=== PATIENT | female | born 1945 | race African-American/Black ===

== ENCOUNTER 2016-07-28 14:09 | Emergency (ER) | payer MEDICARE, MEDICAID ==
[~2016-07-28] VITALS: Ht 170.2 cm; Wt 71.2 kg
[2016-07-28] MEDS ORDERED: PredniSONE 20mg tab ORAL ONE (14:15)
--- NOTE | 2016-07-28 14:25 | Emergency Room Report ---
History of Present Illness General Chief Complaint: Pain Source: Patient Present Illness HPI Patient is a 71-year-old female who presented after having increased body aches and lower extremity weakness. Patient had prior history of reported MS patient was noted to have increased weakness to her lower extremities. Patient states that she had intermittent relapses. Patient states that she's followed by a physician at [facility]. The patient denied any fever. The patient denied any severe headache. She denied recent trauma Allergies: Coded Allergies: ASPIRIN (Unverified Allergy, Unknown, 05/16/14) Patient History Reviewed Nursing Documentation: PMH: Agreed, PSxH: Agreed Nursing Documentation-PMH Hx Hypertension: Yes Hx Neurological Problems: Yes - arthritis Review of Systems All Other Systems: negative except mentioned in HPI Physical Exam Vital Signs Date Time Temp Pulse Resp B/P Pulse Ox O2 Delivery O2 Flow Rate FiO2 07/28/16 14:11 99.3 88 16 124/70 98 Room Air Sp02 EP Interpretation: reviewed, normal General Appearance: normal inspection, well appearing, no apparent distress, alert, GCS 15, non-toxic Head: atraumatic ENT: normal ENT inspection, hearing grossly normal, normal voice Neck: normal inspection, full range of motion, supple, no bony tend Respiratory: normal inspection, lungs clear, normal breath sounds, no respiratory distress, no retraction, no wheezing Cardiovascular #1: regular rate, rhythm, no edema Gastrointestinal: normal inspection, normal bowel sounds, non tender, soft, no guarding, no hernia Genitourinary: no CVA tenderness Musculoskeletal: normal inspection, back normal, normal range of motion Neurologic: normal inspection, alert, oriented x3, responsive, merchandising intern III-XII nml as tested, speech normal, other - slight increased reflexes to lower extremities Psychiatric: normal inspection, judgement/insight normal, mood/affect normal Skin: normal inspection, normal color, no rash Medical Decision Making Diagnostic Impression: Primary Impression: Multiple sclerosis exacerbation Additional Impression: Lower extremity weakness ER Course Patient presented for lower extremity weakness. Differential diagnosis included was not limited to urinary tract infection, MS exacerbation, bronchitis among others.Because of complexity of patient's case laboratory testing and imaging studies were ordered.Laboratory studies showed a lower blood count otherwise unremarkable laboratory testing.A urinalysis showed evidence of slight infection. Patient noted have a low-grade fever. Patient was given steroids. The patient was noted to have increased weakness and unable to ambulate. Patient was discussed with Dr. Arce who agreed except patient in transfer laboratory testing showed no evidence of a electrolyte abnormality. The patient be transferred for continuity of care. Patient was empirically given Rocephin. Laboratory Tests Test 07/28/16 14:55 White Blood Count 5.8 K/UL (4.8-10.8) Red Blood Count 4.20 M/UL (4.20-5.40) Hemoglobin 12.1 G/DL (12.0-16.0) Hematocrit 36.4 % (37.0-47.0) L Mean Corpuscular Volume 87 FL (80-99) Mean Corpuscular Hemoglobin 28.9 PG (27.0-31.0) Mean Corpuscular Hemoglobin Concent 33.4 G/DL (32.0-36.0) Red Cell Distribution Width 12.7 % (11.6-14.8) Platelet Count 159 K/UL (150-450) Mean Platelet Volume 8.9 FL (6.5-10.1) Neutrophils (%) (Auto) 70.8 % (45.0-75.0) Lymphocytes (%) (Auto) 17.5 % (20.0-45.0) L Monocytes (%) (Auto) 10.3 % (1.0-10.0) H Eosinophils (%) (Auto) 1.0 % (0.0-3.0) Basophils (%) (Auto) 0.6 % (0.0-2.0) Prothrombin Time 11.6 SEC (9.30-11.50) H Prothrombin Time INR 1.1 (0.9-1.1) PTT 26 SEC (23-33) Sodium Level 142 mEQ/L (135-145) Potassium Level 3.7 mEQ/L (3.4-4.9) Chloride Level 98 mEQ/L (98-107) Carbon Dioxide Level 32 mEQ/L (20-30) H Anion Gap 12 (5-15) Blood Urea Nitrogen 16 mg/dL (7-23) Creatinine 0.7 mg/dL (0.5-0.9) Estimate Glomerular Filtration Rate > 60 mL/min (>60) Glucose Level 136 mg/dL (74-106) H Calcium Level 9.2 mg/dL (8.6-10.2) Total Bilirubin 0.4 mg/dL (0.0-1.2) Aspartate Amino Transferase (AST) 43 U/L (5-40) H Alanine Aminotransferase (ALT) 26 U/L (3-33) Alkaline Phosphatase 71 U/L (35-104) Troponin I < 0.30 ng/mL (<=0.30) Total Protein 6.7 g/dL (6.6-8.7) Albumin 4.1 g/dL (3.5-5.2) Globulin 2.6 g/dL Albumin/Globulin Ratio 1.5 (1.0-2.7) Thyroid Stimulating Hormone (TSH) 0.518 uIU/mL (0.300-4.500) Serum Alcohol < 10 mg/dL Last Vital Signs Date Time Temp Pulse Resp B/P Pulse Ox O2 Delivery O2 Flow Rate FiO2 07/28/16 14:11 99.3 88 16 124/70 98 Room Air Status: unchanged Disposition: XFER SHT-TRM HOSP Condition: Serious Everton Carr Jul 28, 2016 14:24
[2016-07-28 15:06] LABS: BASOPHILS % (AUTO) 0.6 % (0.0-2.0); LYMPHOCYTES % (AUTO) 17.5 % (20.0-45.0); MEAN CORPUSCULAR HEMOGLOBIN 28.9 PG (27.0-31.0); MEAN CORPUSCULAR HGB CONC 33.4 G/DL (32.0-36.0); MEAN CORPUSCULAR VOLUME 87 FL (80-99); MEAN PLATELET VOLUME 8.9 FL (6.5-10.1); MONOCYTES % (AUTO) 10.3 % (1.0-10.0); NEUTROPHILS % (AUTO) 70.8 % (45.0-75.0); PLATELET COUNT 159 K/UL (150-450); RED CELL DISTRIBUTION WIDTH 12.7 % (11.6-14.8); WHITE BLOOD COUNT 5.8 K/UL (4.8-10.8)
[2016-07-28 15:13] VITALS: BP 124/70
[2016-07-28 15:16] LABS: INR 1.1 (0.9-1.1); PROTHROMBIN TIME 11.6 SEC (9.30-11.50)
[2016-07-28 15:27] LABS: TROPONIN I < 0.30 ng/mL (<=0.30)
[2016-07-28 15:30] LABS: ALANINE AMINOTRANSFERASE 26 U/L (3-33); ALBUMIN/GLOBULIN RATIO 1.5 (1.0-2.7); ALCOHOL < 10 mg/dL; ANION GAP 12 (5-15); ASPARTATE AMINO TRANSFERASE 43 U/L (5-40); CALCIUM 9.2 mg/dL (8.6-10.2); CARBON DIOXIDE 32 mEQ/L (20-30); CHLORIDE 98 mEQ/L (98-107); CREATININE 0.7 mg/dL (0.5-0.9); GLOMERULAR FILTRATION RATE > 60 mL/min (>60); HEMOLYSIS 15; POTASSIUM 3.7 mEQ/L (3.4-4.9); SODIUM 142 mEQ/L (135-145); TOTAL PROTEIN 6.7 g/dL (6.6-8.7)
[2016-07-28 15:40] LABS: THYROID STIMULATING HORMONE 0.518 uIU/mL (0.300-4.500)
[2016-07-28] MEDS ORDERED: DAILY VITE1 EACH ORAL (17:26)
[2016-07-28] MEDS ORDERED: OYSTER SHELL C500 MG PO (17:27)
[2016-07-28] MEDS ORDERED: CLOTRIMAZOLE15 GM TOPIC (17:27)
[2016-07-28] MEDS ORDERED: LATANOPROST2.5 ML BOTH EYES (17:28)
[2016-07-28] MEDS ORDERED: BENZTROPINE MESY2 MG ORAL (17:28)
[2016-07-28] MEDS ORDERED: AMLODIPINE BESYL5 MG ORAL (17:29)
[2016-07-28] MEDS ORDERED: DONEPEZIL HCL10 MG ORAL (17:29)
[2016-07-28] MEDS ORDERED: TECFIDERA240 MG PO (17:30)
[2016-07-28] MEDS ORDERED: LATUDA20 MG PO (17:31)
[2016-07-28] MEDS ORDERED: TRAZODONE HCL150 MG ORAL (17:31)
[2016-07-28] MEDS ORDERED: ZYPREXA5 MG ORAL (17:31)
[2016-07-28] MEDS ORDERED: CITALOPRAM HBR20 M1 ORAL (17:32)
[2016-07-28] MEDS ORDERED: cefTRIAXone 1 GM in NS 55 ML IVPB ONE (18:30)
[2016-07-28 18:51] LABS: APPEARANCE,URINE SLIGHTLY CLOUDY; KETONES,URINE 2+ (NEGATIVE); NITRITE,URINE NEGATIVE (NEGATIVE); PROTEIN,URINE 1+ (NEGATIVE)
[2016-07-28 18:52] LABS: LEUKOCYTE ESTERASE ,URINE NEGATIVE (NEGATIVE); UROBILINOGEN,URINE 4 MG/DL (0.0-1.0)
[2016-07-28 19:00] LABS: BACTERIA,URINE MODERATE /HPF; RBC,URINE 0-2 /HPF (0 - 2); SQUAMOUS EPITHELIAL CELL,UR FEW /LPF (NONE/OCC)
[2016-07-28 19:43] VITALS: BP 137/71
== END 2016-07-28 19:46 | disposition short-term general hospital (02) ==
LOC: EDBD 14:09 → EMR 14:45
DX: G35 Multiple sclerosis (principal); R53.1 Weakness; I10 Essential (primary) hypertension; M19.90 Unspecified osteoarthritis, unspecified site; Z88.6 Allergy status to analgesic agent
CPT/HCPCS: 36415; 80053; 81001; 84443; 84484; 85025; 85610; 85730; 87086; 96360; 99285; G0480; J0696; 80329

== ENCOUNTER 2019-02-28 17:34 | Inpatient (IN) | payer MEDICARE, MEDICAID ==
[~2019-02-28] VITALS: Ht 170.2 cm; Wt 88.5 kg
[~2019-02-28 17:34] MED LIST: AMLODIPINE BESYL5 MG ORAL; BENZTROPINE MESY2 MG ORAL; CITALOPRAM HBR20 M1 ORAL; CLOTRIMAZOLE15 GM TOPIC; DAILY VITE1 EACH ORAL; DONEPEZIL HCL10 MG ORAL; LATANOPROST2.5 ML BOTH EYES; LATUDA20 MG PO; OYSTER SHELL C500 MG PO; TECFIDERA240 MG PO; TRAZODONE HCL150 MG ORAL; ZYPREXA5 MG ORAL
[2019-02-28 17:38] VITALS: BP 142/73
--- NOTE | 2019-02-28 17:38 | NUR ---
ED Nurse Note: pt brought in to ER by ambulance from home due to general weakness and general pain 10/10 due to MS. per pt, she ran out of her MS medication and did not take and flaring started. pt aao x4 and per pt she is ambulatory with a cane but not at this moment. skin clean and intact. calm and cooperative. no acute distress noted. pt is in gown and on chief of production.
--- NOTE | 2019-02-28 17:45 | NUR ---
ED Nurse Note: ERMD at bedside.
--- NOTE | 2019-02-28 17:55 | Emergency Room Report ---
History of Present Illness General Chief Complaint: Pain Source: EMS Present Illness HPI Disclaimer: Please note that this report is being documented using DRAGON technology. This can lead to erroneous entry secondary to incorrect interpretation by the dictating instrument. HPI: 73-year-old female with a history of multiple sclerosis presenting for evaluation of lower extremity weakness. Patient states she has been feeling weak for 1 to 2 days particularly in the left lower extremity. This morning she ran out of her MS medication, dimethyl fumarate and missed this morning and afternoon dose. She notes worsening weakness in the left lower extremity but denies changes in pain, sensation or proprioception. She denies any injury or fall. She normally ambulate with the use of a cane but was unable to get around her home this morning. She lives independently otherwise. Denies any fall or head injury recently. Denies any headache, visual changes, weakness or pain in the upper extremities, chest pain, shortness of breath, vomiting, diarrhea. Denies any recent febrile illness or recent change in her health. She follows with neurology at [facility]. PMH: Multiple sclerosis, anxiety, hypertension, depression PSH: Gastric tumor resection Allergies: Hypersensitivity to aspirin Social Hx: Denies tobacco, drug or alcohol abuse Allergies: Coded Allergies: ASPIRIN (Unverified Allergy, Unknown, 05/16/14) Nursing Documentation-PMH Past Medical History: No History, Except For Hx Hypertension: Yes - MS Hx Neurological Problems: Yes - arthritis Review of Systems All Other Systems: negative except mentioned in HPI Physical Exam Vital Signs Date Time Temp Pulse Resp B/P (MAP) Pulse Ox O2 Delivery O2 Flow Rate FiO2 02/28/19 17:29 97.9 89 18 159/84 (109) 98 Room Air General: Awake and alert, no acute distress HEENT: NC/AT. EOMI. PERRLA. Visual jaffe are full. No nystagmus. Facial expressions are symmetrical. No facial droop. Cardiovascular: RRR. S1 and S2 normal. No murmur appreciated Resp: Normal work of breathing. No cough, wheezing or crackles appreciated Abdomen: Abdomen is soft, nondistended. Nontender Skin: Intact. No abrasions, laceration or rash over the exposed skin MSK: Normal tone and bulk. Moving all extremities. No obvious deformity. There is no drift in the upper extremities bilaterally. There is drift in the right lower extremity and the left lower extremity falls to the floor with some effort against gravity. Neuro: Awake and alert. Mentating appropriately. Facial expression symmetrical. No dysarthria, no ataxia on [id number]. Sensation to light touch is intact over the upper and lower extremities. The patient has intact speech with good repetition, comprehension. Fund of knowledge is full. No aphasia, no neglect. NIH: 3 Medical Decision Making Diagnostic Impression: Primary Impression: Weakness ER Course This is 73-year-old female with a history of multiple sclerosis presenting for evaluation of lower extremity weakness beginning sometime yesterday and worsening throughout the day today. Differential includes was not limited to MS exacerbation, CVA, letter light abnormality, dehydration, intercranial mass. Will stop metabolic and infectious work-up with labs, EKG and also obtain a noncontrast CT scan of the head and an MRI with and without contrast of the brain. Laboratory Tests Test 02/28/19 17:45 02/28/19 21:00 White Blood Count 4.5 K/UL (4.8-10.8) L Red Blood Count 3.86 M/UL (4.20-5.40) L Hemoglobin 11.6 G/DL (12.0-16.0) L Hematocrit 33.2 % (37.0-47.0) L Mean Corpuscular Volume 86 FL (80-99) Mean Corpuscular Hemoglobin 30.2 PG (27.0-31.0) Mean Corpuscular Hemoglobin Concent 35.0 G/DL (32.0-36.0) Red Cell Distribution Width 12.5 % (11.6-14.8) Platelet Count 127 K/UL (150-450) L Mean Platelet Volume 7.7 FL (6.5-10.1) Neutrophils (%) (Auto) 52.1 % (45.0-75.0) Lymphocytes (%) (Auto) 31.0 % (20.0-45.0) Monocytes (%) (Auto) 13.8 % (1.0-10.0) H Eosinophils (%) (Auto) 1.2 % (0.0-3.0) Basophils (%) (Auto) 2.0 % (0.0-2.0) Erythrocyte Sedimentation Rate 17 MM/HR (0-30) Sodium Level 144 MMOL/L (136-145) Potassium Level 4.0 MMOL/L (3.5-5.1) Chloride Level 111 MMOL/L (98-107) H Carbon Dioxide Level 26 MMOL/L (21-32) Anion Gap 7 mmol/L (5-15) Blood Urea Nitrogen 12 mg/dL (7-18) Creatinine 0.6 MG/DL (0.55-1.30) Estimate Glomerular Filtration Rate mL/min (>60) Glucose Level 97 MG/DL (74-106) Calcium Level 9.2 MG/DL (8.5-10.1) Phosphorus Level 3.0 MG/DL (2.5-4.9) Magnesium Level 1.7 MG/DL (1.8-2.4) L Total Bilirubin 0.4 MG/DL (0.2-1.0) Aspartate Amino Transferase (AST) 23 U/L (15-37) Alanine Aminotransferase (ALT) 18 U/L (12-78) Alkaline Phosphatase 85 U/L (46-116) Total Creatine Kinase 221 U/L (26-308) Creatine Kinase MB 2.4 NG/ML (0.0-3.6) Creatine Kinase MB Relative Index 1.0 Troponin I 0.000 ng/mL (0.000-0.056) C-Reactive Protein, Quantitative < 0.4 mg/dL (0.00-0.90) Total Protein 7.5 G/DL (6.4-8.2) Albumin 3.8 G/DL (3.4-5.0) Globulin 3.7 g/dL Albumin/Globulin Ratio 1.0 (1.0-2.7) Urine Color Pale yellow Urine Appearance Clear Urine pH 6 (4.5-8.0) Urine Specific [place] 1.010 (1.005-1.035) Urine Protein Negative (NEGATIVE) Urine Glucose (UA) Negative (NEGATIVE) Urine Ketones Negative (NEGATIVE) Urine Blood 1+ (NEGATIVE) H Urine Nitrite Negative (NEGATIVE) Urine Bilirubin Negative (NEGATIVE) Urine Urobilinogen Normal MG/DL (0.0-1.0) Urine Leukocyte Esterase Negative (NEGATIVE) Urine RBC 0-2 /HPF (0 - 2) Urine WBC 0-2 /HPF (0 - 2) Urine Squamous Epithelial Cells Occasional /LPF Urine Bacteria Few /HPF (NONE) EKG Diagnostic Results EKG Time: 18:04 Rate: normal Rhythm: NSR ST Segments: no acute changes Other Impression Sinus rhythm, slight left axis deviation, inverted T wave III and peaked T waves in V2. No ST segment changes. Rhythm Strip Diag. Results Rhythm Strip Time: 18:04 EP Interpretation: yes Rate: 70s Rhythm: NSR, no PVC's, no ectopy CT/MRI/US Diagnostic Results CT/MRI/US Diagnostic Results : Impression Preliminary Findings Only See Final Report For Complete Findings MRI HEAD W/WO Contrast: FINDINGS: No abnormal intra- or extra-axial collections. There is prominence of the perivascular spaces. No abnormal enhancement. No evidence for restricted diffusion. There are involutional changes with prominence of the sulci, basal cisterns and ventricles. Scattered white matter hyperintensities are present, likely from small vessel disease. No evidence for blood products on gradient imaging The song-white differentiation is preserved. No evidence of mass effect , midline shift, or edema. IMPRESSION: 1. No acute intracranial process. 2. White matter changes suspicious for small vessel ischemic change. Prominence of perivascular spaces Radiologist: Fabio Carney MD Study ready at 21:05 and initial results transmitted at 21:38 Reevaluation Time: 22:00 Last Vital Signs Date Time Temp Pulse Resp B/P (MAP) Pulse Ox O2 Delivery O2 Flow Rate FiO2 02/28/19 17:42 81 18 Room Air 02/28/19 17:38 97.9 142/73 97 Status: unchanged Reevaluation Impression CT scan of the head showed no acute intracranial mass or bleed. MRI showed nonspecific white matter changes consistent with microvascular disease but no acute intracranial findings to suggest acute MS flare. She was given high-dose steroids for suspected MS exacerbation. Lab work is returned largely within normal limits. She will be admitted for lower extremity weakness and inability to ambulate. She is stable and appropriate for transfer to the floor. Disposition: ADMITTED INPATIENT Condition: Serious Scott Hunt MD Feb 28, 2019 17:55
[2019-02-28] MEDS ORDERED: Gadavist 7.5mMol/7.5ml vial IV PRN (18:00)
[2019-02-28 18:08] LABS: EOSINOPHILS % (AUTO) 1.2 % (0.0-3.0); HEMATOCRIT 33.2 % (37.0-47.0); HEMOGLOBIN 11.6 G/DL (12.0-16.0); MEAN CORPUSCULAR VOLUME 86 FL (80-99); MONOCYTES % (AUTO) 13.8 % (1.0-10.0); NEUTROPHILS % (AUTO) 52.1 % (45.0-75.0); PLATELET COUNT 127 K/UL (150-450); RED BLOOD COUNT 3.86 M/UL (4.20-5.40); RED CELL DISTRIBUTION WIDTH 12.5 % (11.6-14.8); WHITE BLOOD COUNT 4.5 K/UL (4.8-10.8)
[2019-02-28 18:19] LABS: ANION GAP 7 mmol/L (5-15); BLOOD UREA NITROGEN 12 mg/dL (7-18); CALCIUM 9.2 MG/DL (8.5-10.1); CARBON DIOXIDE 26 MMOL/L (21-32); CHLORIDE 111 MMOL/L (98-107); CREATININE 0.6 MG/DL (0.55-1.30); SODIUM 144 MMOL/L (136-145)
[2019-02-28 18:33] LABS: ALANINE AMINOTRANSFERASE 18 U/L (12-78); ALBUMIN 3.8 G/DL (3.4-5.0); ALKALINE PHOSPHATASE 85 U/L (46-116); ASPARTATE AMINO TRANSFERASE 23 U/L (15-37); BILIRUBIN,TOTAL 0.4 MG/DL (0.2-1.0); CKMB 2.4 NG/ML (0.0-3.6); CREATINE KINASE 221 U/L (26-308)
--- NOTE | 2019-02-28 18:59 | NUR ---
ED Nurse Note: pt went down for imaging in stable condition.
--- NOTE | 2019-02-28 19:04 | NUR ---
HAND-OFF: Report given to Serjio Mckeno RN. pt went down for imaging. no orders to carry at this moment.
--- NOTE | 2019-02-28 19:08 | NUR ---
ED Nurse Note: received report from rosangela cerda rn. patient down in ct.
--- NOTE | 2019-02-28 19:30 | NUR ---
ED Nurse Note: pt back from ct. ao4. nad. vss. assisted pt on bedpan.
--- NOTE | 2019-02-28 19:35 | Diagnostic Imaging Report ---
Indications: Head pain and weakness Technique: Spiral acquisitions obtained through the brain. Angled axial and coronal 5 x 5 mm slices were reconstructed. Total dose length product 1417.5 mGycm. CTDI vol(s) 70.38 mGy. Dose reduction achieved using automated exposure control Comparison: None. Findings: There is periventricular deep white matter low-attenuation, consistent with chronic microvascular ischemic change. Normal size ventricles and extra axial CSF spaces. Otherwise normal kevin-white differentiation. Visualized orbits and sinuses are unremarkable. The mastoids are clear. The calvarium is intact. Impression: Age-related changes, as described Negative for acute intracranial bleed or mass effect This agrees with the preliminary interpretation provided overnight by [facility]. The CT scanner at [facility] is accredited by the [employer] and the scans are performed using protocols designed to limit radiation exposure to as low as reasonably achievable to attain images of sufficient resolution adequate for diagnostic evaluation.
[2019-02-28] MEDS ORDERED: methylPREDNISolone Sod Succ 1,000 MG in NS 275 ML IVPB ONE (19:45)
--- NOTE | 2019-02-28 20:02 | NUR ---
ED Nurse Note: pt down to mri
--- NOTE | 2019-02-28 21:00 | NUR ---
ED Nurse Note: pt back from mri. assisted pt to bedpan. urine collected; sent down to lab.
[2019-02-28 21:19] LABS: APPEARANCE,URINE CLEAR; BILIRUBIN, URINE NEGATIVE (NEGATIVE); COLOR,URINE PALE YELLOW; GLUCOSE, URINE (UA) NEGATIVE (NEGATIVE); KETONES,URINE NEGATIVE (NEGATIVE); LEUKOCYTE ESTERASE ,URINE NEGATIVE (NEGATIVE); NITRITE,URINE NEGATIVE (NEGATIVE); PH,URINE 6 (4.5-8.0); PROTEIN,URINE NEGATIVE (NEGATIVE); UROBILINOGEN,URINE NORMAL MG/DL (0.0-1.0)
--- NOTE | 2019-02-28 21:39 | Diagnostic Imaging Report ---
MRI HEAD W/WO Contrast: FINDINGS: No abnormal intra- or extra-axial collections. There is prominence of the perivascular spaces. No abnormal enhancement. No evidence for restricted diffusion. There are involutional changes with prominence of the sulci, basal cisterns and ventricles. Scattered white matter hyperintensities are present, likely from small vessel disease. No evidence for blood products on gradient imaging The song-white differentiation is preserved. No evidence of mass effect, midline shift, or edema. IMPRESSION: 1. No acute intracranial process. 2. White matter changes suspicious for small vessel ischemic change. Prominence of perivascular spaces
--- NOTE | 2019-02-28 22:39 | NUR ---
ED Nurse Note: report given basilia puga.
--- NOTE | 2019-02-28 22:40 | NUR ---
TRANSFER TO FLOOR: Patient transferred to [place] [id number] as ordered, per md melissa. Report given to basilia puga. belongings list completed with receiving rn.
[2019-03-01] VITALS (7 sets, daily range): BP systolic 132–155; BP diastolic 64–84
--- NOTE | 2019-03-01 00:23 | NUR ---
NURSE NOTES: Received report from Serjio Mckeon RN @ 6549. Pt arrived to unit @6280. Pt transferred into bed in room 410-2. Vitals obtained BP 153/80, WI 64, RR 18, O2 96, Temp. 98.4. Assessment done. AAO x 4, on room air. Pt c/o weakness of low extremities and pain 2/10 on the legs. Skin is intact. IV site intact and patent. No respiratory distress noted. Meds recon done. Called Dr. Agosto to get an admission order @2494. Waiting for call back. Pt has unsteady gait and cane at bedside. 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 Bed locked, lowest position, alarm on, side rails up x 2, call light within reach. Will continue to monitor.
--- NOTE | 2019-03-01 00:45 | NUR ---
NURSE NOTES: [employer], valerio $20, Rehabilitation Coordinator's license, and insurance card are sent to hospital's safe with [employer]. Pt signed on the deposit slip and receipt given. [place] copy is in the pt's chart.
--- NOTE | 2019-03-01 01:50 | NUR ---
NURSE NOTES: Received order from Dr. Agosto and order carried out.
[2019-03-01] MEDS ORDERED: TECFIDERA240 MG PO (02:05)
--- NOTE | 2019-03-01 07:47 | NUR ---
NURSE NOTES: Pharmacy doesn't have Tecfidera 240mg and pt needs to bring it from home or own pharmacy. RN informed pt and pt understood. Pt will call her own pharmacy to delivery it.
--- NOTE | 2019-03-01 07:50 | NUR ---
NURSE NOTES: Report received from AILYN Jarrett. Pt is lying comfortably in semi-fowlers with no signs of distress. A+Ox4, denies pain/SOB. Respirations are even and unlabored on room air. IV site is intact and saline locked. Bed is at lowest position, brakes engaged, siderails x2, bed alarm on, and call light within reach. Pt is in stable condition at this time;will continue to monitor. Spoke with patient about MS meds. Patient is going to call her pharmacy around 0930.
--- NOTE | 2019-03-01 07:53 | NUR ---
HAND-OFF: Report given to AILYN Humphreys.
[2019-03-01] MEDS: Heparin 5000 units/ml inj SUBQ SCH ×2 (09:00→19:57)
[2019-03-01] MEDS: Solu-MEDROL 40mg Inj IVP SCH (09:19)
[2019-03-01] MEDS: Citalopram Hydrobromide 10mg Tab ORAL SCH (09:19)
[2019-03-01] MEDS: OLANZapine 2.5mg tab ORAL SCH ×2 (09:20→18:16)
--- NOTE | 2019-03-01 10:10 | NUR ---
PT EVALUATION NOTE Patient seen for initial evaluation, see complete evaluation for details. Patient presents with BLE weakness and impaired functional mobility. Patient requires SBA for bed mobility. Patient declined OOB activities due to weakness BLEs, states she will not attempt transfers until after she receives her MS medication. Patient will benefit from skilled inpatient PT intervention to address strength, balance and safety to improve level of functional mobility and return to prior level of function. Patient lives alone and has 3 steps to access her apartment. Recommend discharge home with PT follow up vs. SNF for short term rehab depending on patient's progress once medically cleared by MD. Patient may benefit from use of FWW for ambulation. Addendum: 03/01/19 at 1258 by KRYSTINA JONES PT Amended: Links added.
--- NOTE | 2019-03-01 10:16 | NUR ---
*-* INSURANCE *-* ALL AVAILABLE CLINICALS HAVE BEEN FAXED TO: [facility] COREASM: ELIZABETH Patel P:[phone] F: [phone]
--- NOTE | 2019-03-01 10:22 | NUR ---
NURSE NOTES: Pt takes Tecfidera @ home for her MS. She ran out of the medication today and we do not carry it in this hospital. Her prescription is timed out and she needs a new one, but cannot get a hold of her primary doctor. Left a message with Dr. Agosto to see if he can order a prescription for her. Patient says her pharmacy will deliver as long as she has a new prescription. Awaiting Dr. Agosto's response.
--- NOTE | 2019-03-01 10:37 | NUR ---
NURSE NOTES: Dr. Agosto said he will write the prescription for her MS medication when he gets here today.
--- NOTE | 2019-03-01 11:44 | Cardiology Report ---
APPROVED REPORT EKG Measurement Heart [id number] IA [id number] Normal sinus rhythm Possible Left atrial enlargement Incomplete right bundle branch block Left ventricular hypertrophy Abnormal ECG
--- NOTE | 2019-03-01 16:00 | NUR ---
NURSE NOTES: Sent fax of patient's prescription to her pharmacy. They said they will call the nurses station tomorrow to transfer to her room to speak with her about delivery.
--- NOTE | 2019-03-01 17:15 | NUR ---
CASE MANAGEMENT:REVIEW 73 YR OLD FEMALE BIBA FROM HOME CC: PAIN AND WEAKNESS. UNABLE TO AMBULATE D/T PAIN SI: WEAKNESS 97.9 89 18 159/84 98% ON RA MAG-1.7 IS: SOLUMEDROL IV MAG Q1HRS X2 MRI BRAIN CT HEAD : TO MED/SURG 4 EAST PLAN: NEURO CHECKS Q4HRS
--- NOTE | 2019-03-01 19:10 | NUR ---
NURSE NOTES: Received a report from AILYN Dorsey. Pt is in stable condition. AAOX4. Able to make needs known. IV site is patent and intact. Bed in lowest position. Bed alarm is on. Call light within reach. Will continue to monitor.
--- NOTE | 2019-03-01 19:11 | NUR ---
HAND-OFF: Report given to AILYN Hernadez. Pt is in stable condition; plan of care endorsed.
--- NOTE | 2019-03-01 21:45 | History and Physical Report ---
DATE OF ADMISSION: 02/28/2019 REASON FOR ADMISSION: Significant weakness, multiple sclerosis. HISTORY OF PRESENT ILLNESS: The patient is a 81-year-old female who apparently ran out of her medications . The patient notes that she has been feeling weak over the past 1 to 2 days with lower extremity edema. The patient was given Solu-Medrol in the emergency room and missed her morning and afternoon doses of medication and the patient denies any injury or fall. The patient notes that she does need a prescription written so that she can fill it before discharge. She currently lives independently otherwise. Denies any falls or head injury at this time. Denies any headache or visual changes. The patient's care discussed and reviewed. The patient is followed with Neurology at [facility]. She denies any history of fevers or chills. PAST MEDICAL HISTORY: Notable for multiple sclerosis, anxiety, hypertension, depression, gastric tumor resection. MEDICATIONS: Reviewed and reconciled. ALLERGIES: Reviewed and reconciled. REVIEW OF SYSTEMS: All 10-points reviewed and otherwise negative with the exception of the above. PHYSICAL EXAMINATION: GENERAL: The patient is a well-developed female, slightly confused. VITAL SIGNS: Blood pressure 139/64, pulse 63, respiratory rate 18, saturation 98%, temperature is 97. HEENT: Negative. Extraocular movements are grossly intact. NECK: Supple. No adenopathy LUNGS: Fairly clear and symmetric. CARDIAC: Normal S1 and S2. Regular rate and rhythm without murmurs, rubs, or gallops. ABDOMEN: Overall soft, nontender, nondistended. EXTREMITIES: No cyanosis or clubbing. NEUROLOGIC: Awake and alert. Cranial nerves appeared to be fairly within normal limits. Normal speech. The patient is able to move all extremities. No obvious deformities. LABORATORY DATA: Otherwise all reviewed in detail. IMPRESSION: Multiple sclerosis, diffuse weakness, abnormal EKG. MRI with white matter changes, possibly consistent with underlying history of multiple sclerosis. Evidence of mild anemia. RECOMMENDATIONS: 1. Resume home medications. 2. CT evaluation. 3. Solu-Medrol for now. 4. Plan to discharge in the morning if stable with home health. Zachary Agosto M.D. DR: Catarino JOB#: [id number] CC: PATRICIA
[2019-03-02 04:00] VITALS: BP 156/87
--- NOTE | 2019-03-02 07:40 | NUR ---
HAND-OFF: Report given to Carlie Stewart RN. Follow up with the [facility] for the med.
[2019-03-02 08:00] VITALS: BP 156/83
--- NOTE | 2019-03-02 08:03 | NUR ---
NURSE NOTES: Patient received in stable condition, resting in bed. Alert and oriented. IV site on left hand patent and intact. Bed locked in lowest position, call light placed within reach. Will continue to monitor.
--- NOTE | 2019-03-02 08:24 | General Progress Note ---
Assessment/Plan Assessment/Plan: IMPRESSION: Multiple sclerosis, diffuse weakness, abnormal EKG. MRI with white matter changes Evidence of mild anemia. PLAN dc planning maintain MS meds dc solumedrol home PT monitor for falls d/w patient in detail d/w case management impression, plan, and exam edited and reviewed in detail care discussed with RN Subjective Allergies: Coded Allergies: ASPIRIN (Unverified Allergy, Unknown, 05/16/14) Subjective overall stable still weak able to take po Objective Last 24 Hour Vital Signs Date Time Temp Pulse Resp B/P (MAP) Pulse Ox O2 Delivery O2 Flow Rate FiO2 03/02/19 04:00 97.6 60 18 156/87 (110) 98 03/01/19 23:45 98.7 61 17 154/70 (98) 93 03/01/19 21:00 Room Air 03/01/19 20:00 99.0 64 18 135/66 (89) 95 03/01/19 16:00 97.0 63 18 139/64 (89) 98 03/01/19 12:00 98.1 66 18 137/66 (89) 95 03/01/19 09:00 Room Air Intake and Output 03/01/19 03/02/19 19:00 07:00 Intake Total 600 ml Balance 600 ml Intake Oral 600 ml # Voids 5 6 Height (Feet): 5 Height (Inches): 7.00 Weight (Pounds): 181 Objective GENERAL: The patient is a well-developed female, NAD HEENT: Negative. Extraocular movements are grossly intact. NECK: Supple. No adenopathy LUNGS: Fairly clear and symmetric. CARDIAC: Normal S1 and S2. Regular rate and rhythm without murmurs, rubs, or gallops. ABDOMEN: Overall soft, nontender, nondistended. EXTREMITIES: No cyanosis or clubbing. NEUROLOGIC: Awake and alert. Cranial nerves appeared to be fairly within normal limits. Normal speech. The patient is able to move all extremities. stable Zachary Agosto MD Mar 02, 2019 08:24
[2019-03-02] MEDS: Citalopram Hydrobromide 10mg Tab ORAL SCH (08:38)
[2019-03-02] MEDS: OLANZapine 2.5mg tab ORAL SCH ×2 (08:38→17:35)
[2019-03-02] MEDS: Solu-MEDROL 40mg Inj IVP SCH (08:38)
[2019-03-02] MEDS: Heparin 5000 units/ml inj SUBQ SCH ×2 (08:41→20:47)
--- NOTE | 2019-03-02 10:28 | NUR ---
*-* INSURANCE *-* ALL AVAILABLE CLINICALS HAVE BEEN FAXED TO: [facility] COREASM: ELIZABETH Patel P:[phone] F: [phone]
--- NOTE | 2019-03-02 11:02 | NUR ---
NURSE NOTES: RN spoke with Yolanda from [facility] for patient's Tecfidera. Yolanda stated rx was received, and is being processed. Copay $0. Medication will be dropped off tomorrow 03/03 to [facility], main entrance with security/lobby front end alignment specialist. Address and 4th floor nurse's station direct phone number provided. RN apprised the patient.
[2019-03-02 12:00] VITALS: BP 169/96
--- NOTE | 2019-03-02 13:50 | NUR ---
PT NOTE Attempted to see patient for PT treatment. Patient declining to participate with PT, states "I'm not up to it." Carlie ROBERTSON notified, will follow up tomorrow.
--- NOTE | 2019-03-02 14:48 | NUR ---
BILLET CHECKERCODING COORDINATOR SI: WEAKNESS MS EXACERBATION T. 99.2 HR 90 RR 18 B/P 169/96 RA 97% IS: SOLU MEDROL IV PROTONIX PO ZYPREXA PO HEPARIN SUBC MED/SURG STATUS
[2019-03-02 16:00] VITALS: BP 151/79
--- NOTE | 2019-03-02 19:10 | NUR ---
NURSE NOTES: Received a report from Carlie Stewart RN. Pt is in stable condition. AAOX4. Able to make needs known. No IV access, will insert IV later. Bed in lowest position. Bed alarm is on. Call light within reach. Will continue to monitor.
--- NOTE | 2019-03-02 19:12 | NUR ---
HAND-OFF: Report given to Rosa ROBERTSON.
[2019-03-02 20:00] VITALS: BP 189/95
[2019-03-03] VITALS (9 sets, daily range): BP systolic 136–192; BP diastolic 70–116
--- NOTE | 2019-03-03 08:25 | NUR ---
NURSE NOTES: Patient is awake and alert,respirations unlabored,patient sate she ate breakfast.Bed alarm is on,call light within reach.
[2019-03-03] MEDS: Heparin 5000 units/ml inj SUBQ SCH ×2 (09:00→21:00)
--- NOTE | 2019-03-03 09:18 | Pulmonology Progress Note ---
Assessment/Plan Assessment/Plan Pulmonary Progress Note Assessment/Plan: IMPRESSION: Multiple sclerosis, diffuse weakness, abnormal EKG. MRI with white matter changes Evidence of mild anemia. PLAN dc planning maintain MS meds solumedrol previously dc home PT monitor for falls d/w patient in detail d/w case management impression, plan, and exam edited and reviewed in detail care discussed with RN Subjective Allergies: Coded Allergies: ASPIRIN (Unverified Allergy, Unknown, 05/16/14) Subjective overall stable still weak able to take po Objective Vital Signs Noted Height (Feet): 5 Height (Inches): 7.00 Weight (Pounds): 181 Objective GENERAL: The patient is a well-developed female, NAD HEENT: Negative. Extraocular movements are grossly intact. NECK: Supple. No adenopathy LUNGS: Fairly clear and symmetric. CARDIAC: Normal S1 and S2. Regular rate and rhythm without murmurs, rubs, or gallops. ABDOMEN: Overall soft, nontender, nondistended. EXTREMITIES: No cyanosis or clubbing. NEUROLOGIC: Awake and alert. Cranial nerves appeared to be fairly within normal limits. Normal speech. The patient is able to move all extremities. stable Subjective ROS Limited/Unobtainable: No Allergies: Coded Allergies: ASPIRIN (Unverified Allergy, Unknown, 05/16/14) Objective Last 24 Hour Vital Signs Date Time Temp Pulse Resp B/P (MAP) Pulse Ox O2 Delivery O2 Flow Rate FiO2 03/03/19 06:46 97 18 150/103 (119) 95 03/03/19 05:28 182/106 03/03/19 04:00 98.2 98 17 182/106 (131) 97 03/03/19 02:35 79 18 172/102 (125) 94 03/03/19 00:50 192/114 03/03/19 00:00 99.4 88 18 192/114 (140) 95 03/02/19 21:00 Room Air 03/02/19 20:48 189/95 03/02/19 20:00 98.9 85 16 189/95 (126) 96 03/02/19 16:00 98.7 74 18 151/79 (103) 95 03/02/19 12:28 169/96 03/02/19 12:00 99.2 90 18 169/96 (120) 97 Intake and Output 03/02/19 03/03/19 19:00 07:00 Intake Total 600 ml 360 ml Balance 600 ml 360 ml Intake Oral 600 ml 360 ml # Voids 4 5 Current Medications Medications (Trade) Dose Ordered Sig/Jesus Route PRN Reason Start Time Stop Time Status Last Admin Dose Admin Acetaminophen (Tylenol) 650 mg Q4H PRN ORAL Mild Pain/Temp > 100.5 03/01/19 02:15 03/31/19 02:14 Al Hydroxide/Mg Hydroxide (Mylanta) 30 ml Q4H PRN ORAL abdominal cramps 03/01/19 02:15 03/31/19 02:14 Citalopram Hydrobromide (celeXA) 20 mg DAILY ORAL 03/01/19 09:00 03/31/19 08:59 03/02/19 08:38 Clonidine HCl (Catapres Tab) 0.1 mg Q4H PRN ORAL SBP>150 03/01/19 02:15 03/31/19 02:14 03/03/19 05:28 Gadobutrol (Gadavist) 7.5 mmol NOW PRN IV Radiology Procedure 02/28/19 18:00 03/04/19 17:48 Heparin Sodium (Porcine) (Heparin 5000 units/ml) 5,000 units EVERY 12 HOURS SUBQ 03/01/19 09:00 03/31/19 08:59 Methylprednisolone Sodium Succinate (Solu-MEDROL) 40 mg DAILY IVP 03/01/19 09:00 03/31/19 08:59 03/02/19 08:38 Non-Formulary Medication (Non-Formulary Med) 1 ea DAILY ORAL 03/01/19 09:00 03/31/19 08:59 UNV Olanzapine (ZyPREXA) 2.5 mg TWICE A DAY ORAL 03/01/19 09:00 03/31/19 08:59 03/02/19 17:35 Pantoprazole (Protonix) 40 mg DAILY ORAL 03/01/19 09:00 03/31/19 08:59 03/02/19 08:38 Alirio Oviedo MD Mar 03, 2019 09:18
[2019-03-03] MEDS: OLANZapine 2.5mg tab ORAL SCH ×2 (09:23→18:25)
[2019-03-03] MEDS: Solu-MEDROL 40mg Inj IVP SCH (09:23)
[2019-03-03] MEDS: Citalopram Hydrobromide 10mg Tab ORAL SCH (09:23)
--- NOTE | 2019-03-03 13:40 | NUR ---
CAREER TRANSITION SPECIALISTSEMICONDUCTOR PACKAGES TESTER SI: ASHLIE Hairston 98.7 HR 116 RR 21 B/P 166/86 IS: SOLU MEDROL IV PROTONIX PO ZYPREXA PO HEPARIN SUBC MED/SURG STATUS
--- NOTE | 2019-03-03 15:58 | NUR ---
*-* INSURANCE *-* ALL AVAILABLE CLINICALS HAVE BEEN FAXED TO: [facility]: ELIZABETH Patel P:[phone] F: [phone]
[2019-03-03] MEDS: DIMETHYL FUMARATE 240 MG ORAL SCH (18:24)
--- NOTE | 2019-03-03 19:20 | NUR ---
NURSE NOTES: Patient wants to go home,but patient thinks some one has her belongings and keys, reoriented patient ,patient has her belongings on the bed and she is sorting through her belongings.
--- NOTE | 2019-03-03 19:59 | NUR ---
HAND-OFF: Report given to DOMINGA ROBERTSON.
--- NOTE | 2019-03-03 20:00 | NUR ---
NURSE NOTES: Received patient in no apparent distress. A&OX2 with confusion. IV site patent and intact. Bed in lowest position. Call light within reach. Will continue to monitor.
[2019-03-04] VITALS: BP 185/96
[2019-03-04 04:00] VITALS: BP 156/92
--- NOTE | 2019-03-04 07:00 | NUR ---
HAND-OFF: Report given to Radha ROBERTSON.
--- NOTE | 2019-03-04 07:08 | NUR ---
NURSE NOTES: Patient sitting up in bed and eating breakfast,patient is alert.call light within reach.
[2019-03-04 08:00] VITALS: BP 123/76
[2019-03-04] MEDS: Solu-MEDROL 40mg Inj IVP SCH (08:02)
[2019-03-04] MEDS: OLANZapine 2.5mg tab ORAL SCH (08:03)
[2019-03-04] MEDS: Citalopram Hydrobromide 10mg Tab ORAL SCH (08:03)
[2019-03-04] MEDS: DIMETHYL FUMARATE 240 MG ORAL SCH (08:06)
[2019-03-04] MEDS: Heparin 5000 units/ml inj SUBQ SCH (08:14)
--- NOTE | 2019-03-04 09:05 | General Progress Note ---
Assessment/Plan Assessment/Plan: IMPRESSION: Multiple sclerosis, diffuse weakness, abnormal EKG. MRI with white matter changes Evidence of mild anemia. PLAN dc planning maintain MS meds home PT monitor for falls d/w patient in detail d/w case management home health on discharge monitor for falls impression, plan, and exam edited and reviewed in detail care discussed with RN Subjective Allergies: Coded Allergies: ASPIRIN (Unverified Allergy, Unknown, 05/16/14) Subjective overall stable improved able to take po out of bed Objective Last 24 Hour Vital Signs Date Time Temp Pulse Resp B/P (MAP) Pulse Ox O2 Delivery O2 Flow Rate FiO2 03/04/19 06:44 156/92 03/04/19 04:00 98.7 71 17 156/92 (113) 98 03/04/19 01:20 185/96 03/04/19 00:00 98.7 72 16 185/96 (125) 98 03/03/19 21:00 176/113 03/03/19 21:00 Room Air 03/03/19 20:00 97.9 96 20 176/113 (134) 98 03/03/19 16:02 97.9 72 19 163/70 (101) 96 03/03/19 12:00 97.5 106 19 150/89 (109) 97 03/03/19 09:58 Room Air 03/03/19 09:54 107 136/79 (98) Intake and Output 03/03/19 03/04/19 19:00 07:00 Intake Total 720 ml 240 ml Balance 720 ml 240 ml Intake Oral 720 ml 240 ml # Voids 2 3 Height (Feet): 5 Height (Inches): 7.00 Weight (Pounds): 195 Objective GENERAL: The patient is a well-developed female, NAD, alert HEENT: Negative. Extraocular movements are grossly intact. NECK: Supple. No adenopathy LUNGS: Fairly clear and symmetric. CARDIAC: Normal S1 and S2. Regular rate and rhythm without murmurs, rubs, or gallops. ABDOMEN: Overall soft, nontender, nondistended. EXTREMITIES: No cyanosis or clubbing. NEUROLOGIC: Awake and alert. Cranial nerves appeared to be fairly within normal limits. Normal speech. The patient is able to move all extremities. stable reviewed and edited Zachary Agosto MD Mar 04, 2019 09:05
[2019-03-04 12:00] VITALS: BP 135/78
--- NOTE | 2019-03-04 13:37 | NUR ---
*-* DISCHARGE PLANNING *-* PATIENT HAS BEEN REFERRED TO: [facility] P: [phone] F: [phone]
--- NOTE | 2019-03-04 14:29 | NUR ---
*-* INSURANCE *-* ALL AVAILABLE CLINICALS HAVE BEEN FAXED TO: [facility]IR[facility] COREASM: ELIZABETH Patel P:[phone] F: [phone]
--- NOTE | 2019-03-04 15:33 | NUR ---
NURSE NOTES: Patient discharge home with home health service,home health service called to confirm bryson Seaman the coordinator at [facility].Patient has her personal belongings that were kept in safe.patient has her discharge medications from pharmacy.patient sent home with walker and she has her cane.ID hospital band removed,IV saline lock was removed.Patient accompany to waiting Taxi.
--- NOTE | 2019-03-05 08:24 | Discharge Summary ---
Discharge Summary Discharge Summary _ DATE OF ADMISSION: 02/28/2019 DATE OF DISCHARGE: 03/04/2019 DISCHARGED BY: Dr. Agosto REASON FOR ADMISSION: 73 years old female with past medical history of multiple sclerosis, hypertension, gastric tumor resection, depression, anxiety, apparently ran out of her medication. Patient missed few doses of her multiple sclerosis medication. Patient reported worsening weakness left lower extremity, but denied changes in pain , sensation, or proprioception. She denied recent fall, trauma or injury. She normally ambulates with use of cane, but was unable to get around in the morning prior to presentation to ED. She lives independently. She denied headache, visual changes, weakness or pain in the upper extremity. No chest pain or shortness of breath. No vomiting or diarrhea. Upon evaluation vital signs revealed elevated blood pressure 159/84. Laboratory work-up revealed no leukocytosis, hemoglobin 11.6 ,hematocrit 33.2. Platelet count 1 7. Stable electrolytes and renal parameters. Glucose 97. Stable LFT. Troponin negative. EKG revealed normal sinus rhythm with incomplete right bundle branch block and left ventricular hypertrophy. Albumin 3.8. Urinalysis revealed no evidence of urinary tract infection . CT of the head demonstrated age-related changes, but was negative for acute intracranial bleeding or mass-effect. MRI of the brain showed no acute intracranial process. White matter changes suspicious for small vessel ischemic changes noted. Prominence of perivascular spaces. Patient subsequently admitted for further management. HOSPITAL COURSE: Patient admitted to medical surgical floor. Patient started on the IV Solu-Medrol. Home medication resumed. Tecfidera continued for multiple sclerosis. Patient was encouraged compliance with regimen and ensure refill, so she always have medication available. DVT and GI prophylaxis provided. Fall precaution maintained, and patient was working with a physical therapist. MRI revealed evidence of white matter changes. Patient to continue follow up with neurologist as outpatient. Blood pressure was closely monitored and stabilized with current regimen. Home health was arranged prior to discharge . Patient was stable for discharge home FINAL DIAGNOSES: Multiple sclerosis Diffuse weakness MRI with white matter changes Mild anemia Abnormal EKG Hypertension DISCHARGE MEDICATIONS: See Medication Reconciliation list. DISCHARGE INSTRUCTIONS: Patient was discharged home with home health services. Follow up with primary care provider in one week. I have been assigned to dictate discharge summary for this account. I was not involved in the patient's management. Tamica Bush NP Mar 05, 2019 08:24
== END 2019-03-04 16:30 | disposition home health service (06) | DRG 43 ==
LOC: EDBD 17:34 → EMR 17:59 → 4E 20:20 → EDBEDREQ 22:28
DX: G35 Multiple sclerosis (principal); I10 Essential (primary) hypertension; R53.1 Weakness; D64.9 Anemia, unspecified; R94.31 Abnormal electrocardiogram [ECG] [EKG]; Z88.6 Allergy status to analgesic agent
CPT/HCPCS: 36415; 70450; 70553; 80053; 81003; 82550; 82553; 83735; 84100; 84484; 85025; 85651; 86140; 93005; 96365; 99285; A9585

== ENCOUNTER 2019-08-25 14:21 | Emergency (ER) | payer MEDICARE, MEDICAID ==
[~2019-08-25] VITALS: Ht 167.6 cm; Wt 77.1 kg
[2019-08-25 14:40] VITALS: BP 160/89
--- NOTE | 2019-08-25 14:40 | NUR ---
ED Nurse Note: Patient brought in by ambulance from home due to general weakness since this morning. pt aao x4 but non ambulatory due to RLE weakness and general weakness. calm and cooperative. skin clean and intact. no cardiac or pulmonary distress noted at this time. pt is in gown and on training administrator. per pt, she is weaker than usual today. pt able to use bedpan to urinate.
[2019-08-25 15:05] LABS: APPEARANCE,URINE CLEAR; BILIRUBIN, URINE NEGATIVE (NEGATIVE); GLUCOSE, URINE (UA) NEGATIVE (NEGATIVE); KETONES,URINE NEGATIVE (NEGATIVE); LEUKOCYTE ESTERASE ,URINE 1+ (NEGATIVE); NITRITE,URINE NEGATIVE (NEGATIVE); PH,URINE 5 (4.5-8.0); PROTEIN,URINE NEGATIVE (NEGATIVE); UROBILINOGEN,URINE NORMAL MG/DL (0.0-1.0)
[2019-08-25 15:07] LABS: COLOR,URINE YELLOW
[2019-08-25 15:38] LABS: BASOPHILS % (AUTO) 0.4 % (0.0-2.0); EOSINOPHILS % (AUTO) 0.1 % (0.0-3.0); HEMATOCRIT 36.8 % (37.0-47.0); HEMOGLOBIN 12.3 G/DL (12.0-16.0); LYMPHOCYTES % (AUTO) 17.7 % (20.0-45.0); MEAN CORPUSCULAR VOLUME 87 FL (80-99); MONOCYTES % (AUTO) 9.3 % (1.0-10.0); NEUTROPHILS % (AUTO) 72.4 % (45.0-75.0); PLATELET COUNT 182 K/UL (150-450); RED BLOOD COUNT 4.22 M/UL (4.20-5.40); RED CELL DISTRIBUTION WIDTH 12.1 % (11.6-14.8)
[2019-08-25 15:54] LABS: ANION GAP 11 mmol/L (5-15); BLOOD UREA NITROGEN 18 mg/dL (7-18); CARBON DIOXIDE 28 MMOL/L (21-32); CHLORIDE 108 MMOL/L (98-107); CREATININE 0.6 MG/DL (0.55-1.30); POTASSIUM 3.7 MMOL/L (3.5-5.1); SODIUM 146 MMOL/L (136-145)
[2019-08-25 15:59] LABS: ALANINE AMINOTRANSFERASE 28 U/L (12-78); ALBUMIN 3.4 G/DL (3.4-5.0); ALBUMIN/GLOBULIN RATIO 0.9 (1.0-2.7); ALKALINE PHOSPHATASE 100 U/L (46-116); ASPARTATE AMINO TRANSFERASE 23 U/L (15-37); BILIRUBIN,TOTAL 0.3 MG/DL (0.2-1.0)
--- NOTE | 2019-08-25 16:26 | Diagnostic Imaging Report ---
Indication: Dyspnea Comparison: None A single view chest radiograph was obtained. Findings: No definite infiltrate or pulmonary vascular congestion identified. The heart is enlarged. The aorta is mildly enlarged consistent with atherosclerotic vascular disease. The bones are osteopenic. There are thoracic vertebral enthesophytes at multiple levels. Impression: No acute disease
[2019-08-25 16:38] VITALS: BP 148/80
--- NOTE | 2019-08-25 16:39 | NUR ---
ED Nurse Note: Pt cleared by health care Provider for discharge. DC instructions/prescription was given and explained to pt and verbalized understanding of teachings. All medical deviecs such as ID band removed. Pt is AAO x4, ambulatory and left with all personal belongings. Taxi was provided to her place per pt's request.
--- NOTE | 2019-08-31 14:07 | Emergency Room Report ---
History of Present Illness General Chief Complaint: Generalized Weakness Source: Patient, EMS Present Illness HPI 74-year-old female presents ED for evaluation. Brought in by EMS from home. States she feels weak for 1 day. Generalized weakness. Denies any slurred speech or facial droop. Denies any chest pain or shortness of breath. Denies sick contacts or recent travel. Did not receive flu shot this year. Denies any body aches chills or cough. No other aggravating relieving factors. Denies any other associated symptoms Allergies: Coded Allergies: ASPIRIN (Unverified Allergy, Unknown, 05/16/14) Patient History Past Medical History: HTN, other - MS Past Surgical History: none Pertinent Family History: none Social History: Denies: smoking, alcohol use, drug use Now: No Immunizations: UTD Reviewed Nursing Documentation: PMH: Agreed; PSxH: Agreed Nursing Documentation-PMH Past Medical History: No History, Except For Hx Cardiac Problems: Yes - MS Hx Hypertension: Yes Hx Cancer: No Hx Gastrointestinal Problems: No Hx Neurological Problems: Yes - arthritis Review of Systems All Other Systems: negative except mentioned in HPI Physical Exam Sp02 EP Interpretation: reviewed, normal General Appearance: no apparent distress, alert, GCS 15, non-toxic Head: normocephalic, atraumatic Eyes: bilateral eye normal inspection, bilateral eye PERRL ENT: hearing grossly normal, normal pharynx, no angioedema, normal voice Neck: full range of motion, supple/symm/no masses Respiratory: chest non-tender, lungs clear, normal breath sounds, speaking full sentences Cardiovascular #1: regular rate, rhythm, no edema Cardiovascular #2: 2+ carotid (R), 2+ carotid (L), 2+ radial (R), 2+ radial (L) , 2+ dorsalis pedis (R), 2+ dorsalis pedis (L) Gastrointestinal: normal bowel sounds, non tender, soft, non-distended, no guarding, no rebound Rectal: deferred Genitourinary: normal inspection, no CVA tenderness Musculoskeletal: back normal, normal range of motion, gait/station normal, non- tender Neurologic: alert, motor strength/tone normal, oriented x3, sensory intact, responsive, speech normal Psychiatric: judgement/insight normal, memory normal, mood/affect normal, no suicidal/homicidal ideation Reflexes: 3+ bicep (R), 3+ bicep (L), 3+ tricep (R), 3+ tricep (L), 3+ knee (R) , 3+ knee (L) Lymphatic: no adenopathy Medical Decision Making Diagnostic Impression: Primary Impression: Episode of generalized weakness ER Course Hospital Course 74 yo F presents with generalized weakness Differential diagnoses include: URI, bronchitis, asthma/COPD, pneumonia Clinical course Patient placed on stretcher. After initial history, physical exam reveals a felderly male in no acute distress. Bilateral TM unremarkable. No pharyngeal erythema. No tonsillar exudates. No lymphadenopathy. lungs clear. I ordered labs, IV fluids, chest x-ray. Labs reviewed-no leukocytosis, hemoglobin/hematocrit stable, electrolytes okay, UA negative, flu swab negative Chest x-ray shows no acute process I discussed findings with patient. Vitals stable. Reassurance given. Labs unremarkable. Exam unremarkable. No neurological deficits. Safe for discharge with close outpatient follow-up observed walking in ED without difficulty. Is requesting one night to sleep here as she does not have a place to stay. States she will contact her daughter. In the meanwhile we will also provide housing referrals. Also provide PMD referrals Diagnosis - episode of generalized wakness Stable and discharged home. Instructed to followup with PMD. Return to ED if symptoms recur or worsen Labs Test 08/25/19 14:30 08/25/19 15:10 Urine Color Yellow Urine Appearance Clear Urine pH 5 (4.5-8.0) Urine Specific [place] 1.020 (1.005-1.035) Urine Protein Negative (NEGATIVE) Urine Glucose (UA) Negative (NEGATIVE) Urine Ketones Negative (NEGATIVE) Urine Blood Negative (NEGATIVE) Urine Nitrite Negative (NEGATIVE) Urine Bilirubin Negative (NEGATIVE) Urine Urobilinogen Normal MG/DL (0.0-1.0) Urine Leukocyte Esterase 1+ (NEGATIVE) Urine RBC 0-2 /HPF (0 - 2) Urine WBC 0-2 /HPF (0 - 2) Urine Squamous Epithelial Cells Occasional /LPF Urine Bacteria Occasional /HPF (NONE) White Blood Count 8.0 K/UL (4.8-10.8) Red Blood Count 4.22 M/UL (4.20-5.40) Hemoglobin 12.3 G/DL (12.0-16.0) Hematocrit 36.8 % (37.0-47.0) Mean Corpuscular Volume 87 FL (80-99) Mean Corpuscular Hemoglobin 29.2 PG (27.0-31.0) Mean Corpuscular Hemoglobin Concent 33.4 G/DL (32.0-36.0) Red Cell Distribution Width 12.1 % (11.6-14.8) Platelet Count 182 K/UL (150-450) Mean Platelet Volume 8.4 FL (6.5-10.1) Neutrophils (%) (Auto) 72.4 % (45.0-75.0) Lymphocytes (%) (Auto) 17.7 % (20.0-45.0) Monocytes (%) (Auto) 9.3 % (1.0-10.0) Eosinophils (%) (Auto) 0.1 % (0.0-3.0) Basophils (%) (Auto) 0.4 % (0.0-2.0) Sodium Level 146 MMOL/L (136-145) Potassium Level 3.7 MMOL/L (3.5-5.1) Chloride Level 108 MMOL/L (98-107) Carbon Dioxide Level 28 MMOL/L (21-32) Anion Gap 11 mmol/L (5-15) Blood Urea Nitrogen 18 mg/dL (7-18) Creatinine 0.6 MG/DL (0.55-1.30) Estimat Glomerular Filtration Rate > 60 mL/min (>60) Glucose Level 90 MG/DL (74-106) Calcium Level 9.0 MG/DL (8.5-10.1) Total Bilirubin 0.3 MG/DL (0.2-1.0) Aspartate Amino Transf (AST/SGOT) 23 U/L (15-37) Alanine Aminotransferase (ALT/SGPT) 28 U/L (12-78) Alkaline Phosphatase 100 U/L (46-116) Total Protein 7.0 G/DL (6.4-8.2) Albumin 3.4 G/DL (3.4-5.0) Globulin 3.6 g/dL Albumin/Globulin Ratio 0.9 (1.0-2.7) Chest X-Ray Diagnostic Results Chest X-Ray Diagnostic Results : Chest X-Ray Ordered: Yes # of Views/Limited/Complete: 1 View Indication: Other EP Interpretation: Yes Interpretation: no consolidation, no effusion, no pneumothorax, no acute cardiopulmonary disease Impression: No acute disease Electronically Signed by: Electronically signed by Anmol Hartman MD Status: improved Disposition: HOME, SELF-CARE Condition: Stable Referrals: NOT CHOSEN IPA/,REFERRING (PCP) [facility] Patient Instructions: Anmol Marroquin MD Aug 31, 2019 14:07
== END 2019-08-25 16:45 | disposition home or self-care (01) ==
LOC: EDBD 14:21 → EMR 16:45
DX: R53.1 Weakness (principal); Z88.6 Allergy status to analgesic agent; G35 Multiple sclerosis; I10 Essential (primary) hypertension; M19.90 Unspecified osteoarthritis, unspecified site
CPT/HCPCS: 36415; 71045; 80053; 81003; 85025; 86710; 96360; 99284; J7030